=== PATIENT | male | born 1945 | race Caucasian/White ===

== ENCOUNTER 2018-01-13 01:13 | Emergency (ER) | payer MEDICARE ==
[~2018-01-13] VITALS: Ht 175.3 cm; Wt 85.6 kg
[2018-01-13 01:18] VITALS: BP 194/91; PULSE 74; RESP 16; TEMP 97.7; O2SAT 96
--- NOTE | 2018-01-13 01:43 | PD ---
HPI Chief Complaint: Flank/Kidney Pain Time Seen by Provider: 01:39 Travel History International Travel<30 days: No Contact w/Intl Traveler<30days: No Traveled to known affect area: No History of Present Illness HPI 72-year-old male presents to the emergency department complaint of right flank and right lower quadrant abdominal pain onset since 5 PM this evening. Patient has history of kidney stones and underwent lithotripsy at [facility] on Wednesday. Patient was pain-free and did not fill his prescription pain medications. Patient was feeling well until Wednesday evening with onset of colicky type pain. Patient had associated nausea without vomiting. Patient denies fever chills. Patient has had hematuria. Patient took acetaminophen 650 mg at 10 PM. Patient has history of hypertension and dyslipidemia and takes no blood thinning agents at this time. Patient is not taking an antibiotic. [facility] Past Medical History Narrative Medical Hypertension dyslipidemia kidney stones lithotripsy; nursing notes reviewed Diminished Hearing: No Hypertension: Yes Medical other: Yes (kidney stones) Tetanus Vaccination: < 5 Years Influenza Vaccination: Yes Past Surgical History Surgical History: No Previous Surgery Social History Alcohol Use: No Tobacco Use: No Substance Use: No Allergies-Medications (Allergen,Severity, Reaction): Coded Allergies: No Known Allergies (Unverified , 01/13/18) Narrative Medication Lovastatin lisinopril Review of Systems Except as stated in HPI: all other systems reviewed are Neg General / Constitutional: No: Fever, Chills HENT: No: Congestion Cardiovascular: No: Chest Pain or Discomfort Gastrointestinal: Positive: Nausea, Abdominal Pain Genitourinary: Positive: Hematuria, Flank Pain Musculoskeletal: No: Myalgias, Arthralgias Skin: No Rash Neurologic: No: Weakness Hematologic/Lymphatic: No: Lymph Node Enlargement Physical Exam Narrative GENERAL: Well-developed well-nourished male in no acute respiratory distress SKIN: Warm and dry. HEAD: Normocephalic. EYES: No scleral icterus. No injection or drainage. NECK: Supple, trachea midline. No JVD or lymphadenopathy. CARDIOVASCULAR: Regular rate and rhythm without murmurs, gallops, or rubs. RESPIRATORY: Breath sounds equal bilaterally. No accessory muscle use. GASTROINTESTINAL: Abdomen soft, mild right lower quadrant tenderness to palpation without guarding or rebound, nondistended. MUSCULOSKELETAL: No cyanosis, or edema. BACK: Nontender without obvious deformity. Mild right-sided CVA tenderness. Data Data Last Documented VS Vital Signs Date Time Temp Pulse Resp B/P (MAP) Pulse Ox O2 Delivery O2 Flow Rate FiO2 01/13/18 02:20 79 18 153/74 (100) 100 Room Air 01/13/18 01:18 97.7 Orders Orders ^ Saline Lock (01/13/18 01:39) Basic Metabolic Panel (Bmp) (01/13/18 01:39) Urinalysis - C+S If Indicated (01/13/18 01:39) Morphine Inj (Morphine Inj) (01/13/18 01:45) Ondansetron Odt (Zofran Odt) (01/13/18 01:45) Ketorolac Inj (Toradol Inj) (01/13/18 01:45) Sodium Chlorid 0.9% 500 Ml Inj (Ns 500 M (01/13/18 01:45) Ed Discharge Order (01/13/18 02:53) Labs Laboratory Tests Test 01/13/18 01:44 01/13/18 01:53 Urine Color BROWN Urine Turbidity CLOUDY Urine pH 5.0 Urine Specific [place] GREATER/EQUAL 1.030 Urine Protein 100 mg/dL Urine Glucose (UA) NEG mg/dL Urine Ketones 40 mg/dL Urine Occult Blood LARGE Urine Nitrite NEG Urine Bilirubin NEG Urine Urobilinogen 0.2 MG/DL Urine Leukocyte Esterase TRACE Urine RBC 100-200 /hpf Urine WBC 6-8 /hpf Urine Squamous Epithelial Cells 0-5 /hpf Urine Bacteria NONE /hpf Microscopic Urinalysis Comment CULT NOT INDICATED Blood Urea Nitrogen 16 MG/DL Creatinine 1.40 MG/DL Random Glucose 137 MG/DL Calcium Level 9.1 MG/DL Sodium Level 137 MEQ/L Potassium Level 3.9 MEQ/L Chloride Level 102 MEQ/L Carbon Dioxide Level 28.4 MEQ/L Anion Gap 7 MEQ/L Estimat Glomerular Filtration Rate 50 ML/MIN MDM Medical Decision Making Medical Screen Exam Complete: Yes Emergency Medical Condition: Yes Medical Record Reviewed: Yes Interpretation(s) Vital Signs Date Time Temp Pulse Resp B/P (MAP) Pulse Ox O2 Delivery O2 Flow Rate FiO2 01/13/18 01:18 97.7 74 16 194/91 (125) 96 UA: large blood/ rbc's 100-200; cx not indicated bmp: cr: 1.4, elevated Differential Diagnosis Renal colic, hydronephrosis, UTI, pyelonephritis, renal insufficiency/nicole Narrative Course At 2:20 AM patient is clinically and symptomatically improved; patient rates discomfort 2-3/10 intensity and blood pressure has improved as well. Patient denies any nausea. Lab values remarkable for hematuria with elevated specific gravity greater than 1.030 patient has received bolus of normal saline and large blood 100-200 RBCs with few WBCs no bacteria culture is not indicated. Metabolic panel notes mild renal insufficiency creatinine of 1.40 @ 2:24 BP: 153/74 Diagnosis Primary Impression: Renal colic on right side Additional Impressions: Status post laser lithotripsy of ureteral calculus Renal insufficiency, mild HTN (hypertension) Referrals: Urologist call for appointment Patient Instructions: General Instructions, Narcotic given in the ED Additional Instructions: Increase fluid hydration Take pain medication as prescribed by your urologist Avoid nonsteroidal anti-inflammatory medication such as ibuprofen/Advil/Motrin/ Aleve/Naprosyn/naproxen Monitor temperature for fever take acetaminophen/Tylenol as needed for fever 100.4F or greater Return to the emergency department for any concerns or change in condition Disposition: 01 DISCHARGE HOME Condition: Stable Kia Ray MD January 13, 2018 01:43
[2018-01-13] MEDS ORDERED: KETOROLAC TROMETHAMINE 30 MG/ML (IVP) VIAL IV PUSH ONE (01:45)
[2018-01-13] MEDS ORDERED: SODIUM CHLORID 0.9% 500 ML INJ 500 ML IV ONE (01:45)
[2018-01-13] MEDS ORDERED: ONDANSETRON ODT 4 MG TAB PO ONE (01:45)
[2018-01-13] MEDS ORDERED: MORPHINE SULFATE 4 MG/ML INJ IV PUSH ONE (01:45)
[2018-01-13 01:59] LABS: BLOOD, URINE LARGE (NEG); GLUCOSE,URINE NEG (NEG); KETONE, URINE 40 mg/dL (NEG); NITRITE,URINE NEG (NEG); URINE LEUKOCYTE ESTERASE TRACE (NEG)
[2018-01-13 02:04] LABS: BILIRUBIN, URINE NEG (NEG); URINE COLOR BROWN (YELLW/STRAW)
[2018-01-13 02:05] LABS: RBC, URINE 100-200 /hpf (0-3); SQUAMOUS EPITHELIAL CELL URINE 0-5 /hpf (0-5)
[2018-01-13 02:09] LABS: BICARBONATE 28.4 MEQ/L (21.0-32.0); CALCIUM 9.1 MG/DL (8.5-10.1)
[2018-01-13 02:13] LABS: CREATININE 1.4 MG/DL (0.60-1.30)
[2018-01-13 02:20] VITALS: BP 153/74; PULSE 79; RESP 18; O2SAT 100
== END 2018-01-13 03:06 | disposition home or self-care (01) ==
LOC: PHED 01:13
DX: N23 Unspecified renal colic (principal); N28.9 Disorder of kidney and ureter, unspecified; I10 Essential (primary) hypertension; E78.5 Hyperlipidemia, unspecified; Z87.442 Personal history of urinary calculi
CPT/HCPCS: 80048; 81001; 96361; 96374; 96375; 99284; J1885; J2270; J7040